=== PATIENT | female | born 1970 | race Caucasian/White ===

== ENCOUNTER 2021-10-06 16:08 | Emergency (ER) | payer OTHER ==
[2021-10-06 17:58] VITALS: BP 128/89; PULSE 65; RESP 18; TEMP 97.1
--- NOTE | 2021-10-06 18:41 | ED ---
General Adult HPI - General Chief complaint: Upper Respiratory Infection Stated complaint: Cough Time Seen by Provider: 10/06/21 18:07 Source: patient Mode of arrival: ambulatory Limitations: no limitations - History of Present Illness Initial comments: This 7-year-old female presents to the emergency department after being exposed COVID-19 stating she would like to get a test. Patient does state she has been experiencing a mild headache, cough, body aches 2 days. Patient states she does take Tylenol seems to help the symptoms. Patient states she is here to get the COVID-19 test. Patient would not like to receive antibodies if she is positive. Patient denies any chest pain, shortness of breath, change in bowel or bladder, change in vision. - Related Data Allergies Allergy/AdvReac Type Severity Reaction Status Date / Time cephalexin [From Keflex] Allergy Rash/Hives Verified 10/06/21 17:58 Review of Systems ROS Statement: Those systems with pertinent positive or pertinent negative responses have been documented in the HPI. ROS Other: All systems not noted in ROS Statement are negative. Past Medical History Past Medical History: Asthma, Fibromyalgia History of Any Multi-Drug Resistant Organisms: None Reported Past Surgical History: Cholecystectomy, Tubal Ligation Past Psychological History: No Psychological Hx Reported Smoking Status: Current every day smoker Past Alcohol Use History: None Reported Past Drug Use History: Marijuana General Exam Limitations: no limitations General appearance: alert, in no apparent distress Head exam: Present: atraumatic, normocephalic, normal inspection Eye exam: Present: normal appearance, EOMI ENT exam: Present: normal exam, mucous membranes moist Respiratory exam: Present: normal lung sounds bilaterally. Absent: respiratory distress, wheezes, rales, rhonchi, stridor Cardiovascular Exam: Present: regular rate, normal rhythm, normal heart sounds. Absent: systolic murmur, diastolic murmur, rubs, gallop, clicks GI/Abdominal exam: Present: soft, normal bowel sounds. Absent: distended, tenderness, guarding, rebound, rigid Extremities exam: Present: normal inspection, full ROM. Absent: tenderness Neurological exam: Present: alert, oriented X3, CN II-XII intact Psychiatric exam: Present: normal affect, normal mood Skin exam: Present: warm, dry, intact, normal color. Absent: rash Course Vital Signs 10/06/21 17:54 Temperature 97.1 F L Pulse Rate 65 Respiratory 18 Rate Blood Pressure 128/89 O2 Sat by Pulse 100 Oximetry Medical Decision Making - Medical Decision Making This 51-year-old female presents to the emergency department to get tested for COVID-19. Patient's COVID-19 test was positive. Patient informed to take vitamin C, vitamin D, zinc [id number]. Patient informed to get pulse oximeter from [facility] and to return if oxygens are below 90%. Patient was sent home in stable condition and agreed to plan. Patient advised to follow up with primary care provider next 1-2 days. - Lab Data Lab Results 10/06/21 Range/Units 18:05 Coronavirus (PCR) Detected A (Not Detectd) Disposition Clinical Impression: COVID-19 Disposition: HOME SELF-CARE Condition: Stable Instructions (If sedation given, give patient instructions): Coronavirus Disease 2019 (COVID-19) Additional Instructions: Please return to the emergency department if new or worsening symptoms occur. Can take [id number] zinc, vitamin D, vitamin C. Advised to get pulse oximeter from [facility] and to return to emergency department if oxygen is ever under 90% Is patient prescribed a controlled substance at d/c from ED?: No Referrals: None,Stated [Primary Care Provider] - 1-2 days Time of Disposition: 18:44
== END 2021-10-06 19:55 | disposition home or self-care (01) ==
LOC: EC 16:08
DX: U07.1 COVID-19 (principal); J45.909 Unspecified asthma, uncomplicated; M79.7 Fibromyalgia; F17.200 Nicotine dependence, unspecified, uncomplicated; F12.90 Cannabis use, unspecified, uncomplicated; Z88.1 Allergy status to other antibiotic agents; Z90.49 Acquired absence of other specified parts of digestive tract; Z98.51 Tubal ligation status
CPT/HCPCS: 87635; 99284

== ENCOUNTER 2023-09-23 14:50 | Emergency (ER) | payer OTHER ==
--- NOTE | 2023-09-23 16:57 | ED ---
General Adult HPI - General Chief complaint: Upper Respiratory Infection Stated complaint: CRESENCIO, left eye pain Time Seen by Provider: 09/23/23 16:52 Source: patient, RN notes reviewed Limitations: no limitations - History of Present Illness Initial comments: 53 year old female presents to the emergency department for evaluation of wheezing x1 month and left upper eyelid swelling x1 day. She reports a history of asthma and states that she ran out of her albuterol 1 month ago and has been unable to get it because of her insurance. She denies any significant shortness of breath or chest pain at this time. She states that she noticed some redness and irritation to her upper eyelid starting yesterday. Denies vision changes, fever, pain with eye movements. - Related Data Home Medications Medication Instructions Recorded Confirmed Albuterol Sulfate [Ventolin HFA] 1 - 2 puff INHALATION RT-Q6H PRN 09/23/23 09/23/23 Hydrochlorothiazide (Unknown 1 dose PO DIRECTED 09/23/23 09/23/23 Strength) Previous Rx's Medication Instructions Recorded Albuterol Inhaler [Ventolin Hfa 1 - 2 puff INHALATION Q6H PRN #1 09/23/23 Inhaler] each Albuterol Nebulized [Ventolin 2.5 mg INHALATION Q4H PRN #75 ml 09/23/23 Nebulized] Allergies Allergy/AdvReac Type Severity Reaction Status Date / Time cephalexin [From Keflex] Allergy Rash/Hives Verified 05/22/22 15:11 Review of Systems ROS Statement: Those systems with pertinent positive or pertinent negative responses have been documented in the HPI. ROS Other: All systems not noted in ROS Statement are negative. Past Medical History Past Medical History: Asthma, Fibromyalgia, Rheumatoid Arthritis (RA) Additional Past Medical History / Comment(s): chronic headaches, restless leg s yndrome History of Any Multi-Drug Resistant Organisms: None Reported Past Surgical History: Cholecystectomy, Tubal Ligation Past Psychological History: No Psychological Hx Reported Smoking Status: Current every day smoker Past Alcohol Use History: None Reported Past Drug Use History: Marijuana General Exam - General Exam Comments Initial Comments: Visual Physical Exam Vital signs reviewed General: Well-appearing, nontoxic, no acute distress. Head: Normocephalic, atraumatic Eyes: PERRLA, EOMI ENT: Airway patent Chest: Nonlabored breathing Skin: No visual rash, normal skin tone Neuro: Alert and oriented 3 Musculoskeletal: No gross abnormalities Limitations: no limitations General appearance: alert, in no apparent distress Head exam: Present: atraumatic, normocephalic, normal inspection Eye exam: Present: normal appearance, PERRL, EOMI. Absent: scleral icterus, conjunctival injection, periorbital swelling ENT exam: Present: normal exam, mucous membranes moist Neck exam: Present: normal inspection. Absent: tenderness, meningismus, lymphadenopathy Respiratory exam: Present: normal lung sounds bilaterally. Absent: respiratory distress, wheezes, rales, rhonchi, stridor Cardiovascular Exam: Present: regular rate, normal rhythm, normal heart sounds. Absent: systolic murmur, diastolic murmur, rubs, gallop, clicks Course Vital Signs 09/23/23 09/23/23 09/23/23 16:06 17:40 18:41 Temperature 98.7 F 98.4 F Pulse Rate 54 L 62 Respiratory 16 18 18 Rate Blood Pressure 115/68 118/72 O2 Sat by Pulse 96 96 Oximetry Medical Decision Making - Medical Decision Making quick note preformed by Italia Sage PA-C Was pt. sent in by a medical professional or institution (MAY Moreno, DRAFTING CLERK, urgent care, hospital, or long term...) When possible be specific @ -No Did you speak to anyone other than the patient for history (EMS, parent, family, police, friend...)? What history was obtained from this source @ -No Did you review nursing and triage notes (agree or disagree)? Why? @ -I reviewed and agree with nursing and triage notes Were old charts reviewed (outside hosp., previous admission, EMS record, old EKG, old radiological studies, urgent care reports/EKG's, long term records)? Report findings @ -No old charts were reviewed Differential Diagnosis (chest pain, altered mental status, abdominal pain women, abdominal pain men, vaginal bleeding, weakness, fever, dyspnea, syncope, headache, dizziness, GI bleed, back pain, seizure, CVA, palpatations, mental health, musculoskeletal)? @ -Differential Dyspnea: Coronary syndrome, arrhythmia, tamponade, asthma, COPD, pulmonary embolism, pneumonia, pneumothorax, pulmonary effusion, anaphylaxis, diabetic ketoacidosis, flailed chest, pulmonary contusion, diaphragmatic rupture, anemia, neuromuscular, this is not meant to be an all-inclusive list. EKG interpreted by me (3pts min.). @ -none X-rays interpreted by me (1pt min.). @ -chest XR shows no acute process CT interpreted by me (1pt min.). @ -None done U/S interpreted by me (1pt. min.). @ -None done What testing was considered but not performed or refused? (CT, X-rays, U/S, labs)? Why? @ -None What meds were considered but not given or refused? Why? @ -None Did you discuss the management of the patient with other professionals (professionals i.e. , PA, DRAFTING CLERK, lab, RT, psych nurse, social media strategist, cash applications specialist, teacher, child support officer, pillowcase sewer)? Give summary @ -No Was smoking cessation discussed for >3mins.? @ -No Was critical care preformed (if so, how long)? @ -No Were there social determinants of health that impacted care today? How? (Homelessness, low income, unemployed, alcoholism, drug addiction, transportation, low edu. Level, literacy, decrease access to med. care, alf, rehab)? @ -No Was there de-escalation of care discussed even if they declined (Discuss DNR or withdrawal of care, Hospice)? DNR status @ -No What co-morbidities impacted this encounter? (DM, HTN, Smoking, COPD, CAD, Cancer, CVA, ARF, Chemo, Hep., AIDS, mental health diagnosis, sleep apnea, morbid obesity)? @ -None Was patient admitted / discharged? Hospital course, mention meds given and route, prescriptions, significant lab abnormalities, going to OR and other pertinent info. @ -Discharged. Patient presented to the emergency department for medication refill and mild redness to her left upper eyelid. On examination, patient lungs clear to auscultation bilaterally cardiac regular rate and rhythm. Patient does have some mild redness to her upper left eyelid without swelling consistent with blepharitis and a small stye. Patient given erythromycin ointment and advised to utilize warm compress. Prescription sent to patient's pharmacy for albuterol inhaler and nebulizer as the patient states that she just ran out and has been having trouble with her asthma symptoms. She is not having any symptoms at this time. Patient discharged home in stable condition. Case discussed with Dr. Junior. Undiagnosed new problem with uncertain prognosis? @ -No Drug Therapy requiring intensive monitoring for toxicity (Heparin, Nitro, Insulin, Cardizem)? @ -No Were any procedures done? @ -No Diagnosis/symptom? @ -Blepharitis, stye Acute, or Chronic, or Acute on Chronic? @ -Acute Uncomplicated (without systemic symptoms) or Complicated (systemic symptoms)? @ -uncomplicated Side effects of treatment? @ -No Exacerbation, Progression, or Severe Exacerbation? @ -No Poses a threat to life or bodily function? How? (Chest pain, [place], [place], pneumonia, PE, COPD, DKA, ARF, appy, cholecystitis, CVA, Diverticulitis, Homicidal, Suicidal, threat to staff... and all critical care pts) @ -No Disposition Clinical Impression: Blepharitis, Hordeolum externum (stye) Disposition: HOME SELF-CARE Condition: Stable Instructions (If sedation given, give patient instructions): Blepharitis (ED) Additional Instructions: Please follow up with your primary care provider. Return to the emergency department for new or worsening symptoms. Prescriptions: Albuterol Inhaler [Ventolin Hfa Inhaler] 1 - 2 puff INHALATION Q6H PRN #1 each PRN Reason: Shortness Of Breath Albuterol Nebulized [Ventolin Nebulized] 2.5 mg INHALATION Q4H PRN #75 ml PRN Reason: difficulty in breathing Is patient prescribed a controlled substance at d/c from ED?: No Referrals: None,Stated [Primary Care Provider] - 1-2 days
[2023-09-23] MEDS ORDERED: ERYTHROMYCIN 5 MG/GM OPHTH OINT 3.5 GM TUBE LEFT EYE STA (17:46)
[2023-09-23] MEDS ORDERED: PROPARACAINE 0.5% OPHTH DROPS 15 ML BTL LEFT EYE STA (17:46)
[2023-09-23] MEDS ORDERED: FLUORESCEIN STRIPS 1 MG STRIP LEFT EYE ONE (17:46)
[2023-09-23 17:50] VITALS: RESP 18
--- NOTE | 2023-09-23 17:53 | XR ---
EXAMINATION TYPE: XR chest 2V DATE OF EXAM: 09/23/2023 5:28 PM CLINICAL INDICATION:Female, 53 years old with history of cough, pain; [facility] COMPARISON: Chest radiographs from 05/22/2022 TECHNIQUE: XR chest 2V Frontal and lateral views of the chest. FINDINGS: Lungs/Pleura: There is no evidence of pleural effusion, focal consolidation, or pneumothorax. Pulmonary vascularity: Unremarkable. Heart/mediastinum: Cardiomediastinal silhouette is unremarkable. Musculoskeletal: No acute osseous pathology. IMPRESSION: No acute cardiopulmonary disease/process.
[2023-09-23 18:56] VITALS: BP 118/72; PULSE 62; TEMP 98.4
== END 2023-09-23 19:11 | disposition home or self-care (01) ==
LOC: EC 14:50
DX: H01.004 Unspecified blepharitis left upper eyelid (principal); H00.014 Hordeolum externum left upper eyelid; J45.909 Unspecified asthma, uncomplicated; F17.200 Nicotine dependence, unspecified, uncomplicated; F12.90 Cannabis use, unspecified, uncomplicated; Z79.899 Other long term (current) drug therapy; Z88.1 Allergy status to other antibiotic agents; Z90.49 Acquired absence of other specified parts of digestive tract
CPT/HCPCS: 71046; 99284

== ENCOUNTER → 2025-02-09 | Outpatient (CLI) | payer OTHER ==
--- NOTE | 2025-02-10 07:17 | MR ---
EXAMINATION TYPE: MR brain wo/w con DATE OF EXAM: 02/09/2025 3:39 PM COMPARISON: 11/14/2012 CLINICAL INDICATION: Female, 55 years old with history of G43.909 MIGRAINE, Migraines, Weakness both sides, Numbness RT side, Forgetfulness IV Contrast: 7 cc Gadobutrol (None if empty) TECHNIQUE: Multiplanar, multisequence images of the brain and brainstem is performed without and with IV contras t, utilizing 7 mL intravenous Gadobutrol . MRI brain without contrast. CLINICAL INDICATION: Female, 55 years old with history of G43.909 MIGRAINE, Persistent headaches. COMPARISON: None. TECHNIQUE: Multiecho multiplanar images the brain were obtained without contrast. FINDINGS: On the T1-weighted sagittal images, the midline structures including the craniovertebral junction rel ationships are normal. The ventricles, basal cisterns and sulci over the convexities are within normal limits and there is n o mass effect or shift of the midline structures. There are a few scattered foci of abnormal increase d signal intensity in the white matter on the FLAIR and T2-weighted images which are nonspecific find ings and most likely reflect mild chronic ischemic white matter change. Based on the diffusion-weight ed images, there is no diffusion restriction or acute ischemic event. Following contrast administration, there is no pathological enhancement throughout the brain parenchy ma. The posterior fossa including the brainstem, fourth ventricle and cerebellar pontine angles appear no rmal. The intraorbital contents are normal. There are marked chronic inflammatory change in the left maxillary sinus, mild chronic inflammatory c hange in the right maxillary sinus and small amount of fluid within the mastoid air cells bilaterally . IMPRESSION: 1. No mass, mass effect , acute ischemic event or pathological enhancement. 2. A few small scattered nonspecific white matter abnormalities as described above. 3. Chronic sinusitis. [facility], , 02/10/2025 7:15 AM
== END | disposition home or self-care (01) ==
LOC: RADMRIMAIN 14:52
PROVIDERS: ATTEND Psychiatry & Neurology Neurology
DX: G43.909 Migraine, unspecified, not intractable, without status migrainosus (principal); J32.0 Chronic maxillary sinusitis; R90.82 White matter disease, unspecified
CPT/HCPCS: 70553; A9585

== ENCOUNTER 2025-04-24 03:37 | Emergency (ER) | payer OTHER ==
[2025-04-24 03:42] VITALS: BP 111/60; PULSE 53; RESP 18; TEMP 97.7
--- NOTE | 2025-04-24 04:24 | ED ---
General Adult HPI - General Chief complaint: Abdominal Pain Stated complaint: Abd pain Time Seen by Provider: 04/24/25 03:43 Source: patient, EMS, RN notes reviewed, old records reviewed Mode of arrival: EMS Limitations: no limitations - History of Present Illness Initial comments: 51 history of abdominal pain. Patient states that she has had some nausea and vomiting that she initially attributed to the amoxicillin that she is currently on. She is taking this for her dental infection. Patient denies fever. She states she had previous cholecystectomy. Denies change in her bowels. - Related Data Home Medications Medication Instructions Recorded Confirmed Albuterol Sulfate [Ventolin HFA] 1 - 2 puff INHALATION RT-Q6H PRN 09/23/23 09/23/23 Hydrochlorothiazide (Unknown 1 dose PO DIRECTED 09/23/23 09/23/23 Strength) Previous Rx's Medication Instructions Recorded Albuterol Inhaler [Ventolin Hfa 1 - 2 puff INHALATION Q6H PRN #1 09/23/23 Inhaler] each Albuterol Nebulized [Ventolin 2.5 mg INHALATION Q4H PRN #75 ml 09/23/23 Nebulized] Docusate [Colace] 100 mg PO BID #60 capsule 04/24/25 polyethylene glycoL 3350 [Miralax] 17 gm PO DAILY #527 gm 04/24/25 Allergies Allergy/AdvReac Type Severity Reaction Status Date / Time amoxicillin Allergy Rash/Hives Verified 04/24/25 03:44 cephalexin [From Keflex] Allergy Rash/Hives Verified 04/24/25 03:44 fluticasone furoate Allergy Rash/Hives Verified 04/24/25 03:44 [From Trelegy Ellipta] umeclidinium Allergy Rash/Hives Verified 04/24/25 03:44 [From Trelegy Ellipta] vilanterol Allergy Rash/Hives Verified 04/24/25 03:44 [From Trelegy Ellipta] Review of Systems ROS Statement: Those systems with pertinent positive or pertinent negative responses have been documented in the HPI. ROS Other: All systems not noted in ROS Statement are negative. Past Medical History Past Medical History: Asthma, Fibromyalgia, Rheumatoid Arthritis (RA) Additional Past Medical History / Comment(s): chronic headaches, restless leg syndrome History of Any Multi-Drug Resistant Organisms: None Reported Past Surgical History: Cholecystectomy, Tubal Ligation Past Psychological History: No Psychological Hx Reported Smoking Status: Current every day smoker Past Alcohol Use History: None Reported Past Drug Use History: Marijuana General Exam General appearance: alert, in no apparent distress Head exam: Present: atraumatic, normocephalic Eye exam: Present: normal appearance, PERRL ENT exam: Present: normal exam Neck exam: Present: normal inspection. Absent: tenderness, meningismus Respiratory exam: Present: normal lung sounds bilaterally. Absent: respiratory distress, wheezes Cardiovascular Exam: Present: regular rate, normal rhythm GI/Abdominal exam: Present: soft, tenderness. Absent: distended Extremities exam: Present: normal inspection Neurological exam: Present: alert, oriented X3, CN II-XII intact. Absent: motor sensory deficit Psychiatric exam: Present: normal affect, normal mood Skin exam: Present: warm, dry, intact Course Vital Signs 04/24/25 03:38 Temperature 97.7 F Pulse Rate 53 L Respiratory 18 Rate Blood Pressure 111/60 O2 Sat by Pulse 98 Oximetry Medical Decision Making - Medical Decision Making Was pt. sent in by a medical professional or institution (Dr. PA, TRAUMA DOCTOR, urgent care, hospital, or long-term...) When possible be specific @ -No Did you speak to anyone other than the patient for history (EMS, parent, family, police, friend...)? What history was obtained from this source @ -No Did you review nursing and triage notes (agree or disagree)? Why? @ -I reviewed and agree with nursing and triage notes Were old charts reviewed (outside hosp., previous admission, EMS record, old EKG, old radiological studies, urgent care reports/EKG's, long-term records)? Report findings @ -No old charts were reviewed Differential Abdominal Pain Women: Appendicitis, Cholecystitis, diverticulosis, ischemic bowel, pancreatitis, hepatitis, UTI, gastroenteritis, AAA, incarcerated hernia, bowel obstruction, constipation, inflammatory bowel, hepatitis, peptic ulcer disease, splenic infarction, perforated viscus, vulvitis, ovarian torsion, PID, kidney stone, placenta abruption, this is not meant to be an all-inclusive list EKG interpreted by me (3pts min.). @ -As above X-rays interpreted by me (1pt min.). @ -None done CT interpreted by me (1pt min.). @CT moderate to severe constipation without obstruction. There is also an incidental finding of pancreatic hypodense lesion, patient is informed of this and will follow-up with her primary care regarding U/S interpreted by me (1pt. min.). @ -None done What testing was considered but not performed or refused? (CT, X-rays, U/S, labs)? Why? @ -None What meds were considered but not given or refused? Why? @ -None Did you discuss the management of the patient with other professionals (professionals i.e. , PA, TRAUMA DOCTOR, lab, RT, psych nurse, social media analyst, forestry worker, teacher, chief resource officer, case supervisor)? Give summary @ -No Was smoking cessation discussed for >3mins.? @ -No Was critical care preformed (if so, how long)? @ -No Were there social determinants of health that impacted care today? How? (Homelessness, low income, unemployed, alcoholism, drug addiction, transportation, low edu. Level, literacy, decrease access to med. care, half-way, rehab)? @ -No Was there de-escalation of care discussed even if they declined (Discuss DNR or withdrawal of care, Hospice)? DNR status @ -No What co-morbidities impacted this encounter? (DM, HTN, Smoking, COPD, CAD, Cancer, CVA, ARF, Chemo, Hep., AIDS, mental health diagnosis, sleep apnea, morbi d obesity)? @ -None Was patient admitted / discharged? Hospital course, mention meds given and rout e, prescriptions, significant lab abnormalities, going to OR and other pertinent info. @ -55-year-old female with abdominal pain, generalized. Patient has mild leukocytosis, mild anemia, otherwise normal electrolytes, kidney function. CT shows moderate to severe stool burden. I suspect this is the cause of the patient's pain. She is given magnesium citrate in the emergency department and prescribed MiraLAX and Colace. She will follow closely with her primary care regarding CT findings. Undiagnosed new problem with uncertain prognosis? @ -No Drug Therapy requiring intensive monitoring for toxicity (Heparin, Nitro, Insulin, Cardizem)? @ -No Were any procedures done? @ -No Diagnosis/symptom? @Abdominal pain Acute, or Chronic, or Acute on Chronic? @Acute Uncomplicated (without systemic symptoms) or Complicated (systemic symptoms)? @Complicated Side effects of treatment? @ -No Exacerbation, Progression, or Severe Exacerbation? @ -No Poses a threat to life or bodily function? How? (Chest pain, [place], [place], pneumonia, PE, COPD, DKA, ARF, appy, cholecystitis, CVA, Diverticulitis, Homicidal, Suicidal, threat to staff... and all critical care pts) @ -No - Lab Data Result diagrams: 04/24/25 04:04 04/24/25 04:04 Lab Results 04/24/25 04/24/25 04/24/25 Range/Units 04:04 04:04 04:04 WBC 11.79 H (4.50-10.00) 10*3/uL RBC 3.30 L (4.10-5.20) 10*6/uL Hgb 10.8 L (12.0-15.0) g/dL Hct 32.1 L (37.2-46.3) % MCV 97.3 H (80.0-97.0) fL MCH 32.7 H (27.0-32.0) pg MCHC 33.6 (32.0-37.0) g/dL Plt Count 310 (140-440) 10*3/uL MPV 9.8 (9.5-12.2) fL Immature Gran % (Auto) 0.3 % Immature Gran # 0.04 (0.00-0.04) 10*3/uL PT 10.8 (10.0-12.5) sec INR 1.0 (<1.2) APTT 22.7 (22.0-30.0) sec Sodium 136 L (137-145) mmol/L Potassium 3.8 (3.5-5.1) mmol/L Chloride 102 (98-107) mmol/L Carbon Dioxide 28 (22-30) mmol/L Anion Gap 6 mmol/L BUN 15 (7-17) mg/dL Creatinine 0.90 (0.52-1.04) mg/dL Est GFR (CKD-EPI)AfAm 84 (>60 ml/min/1.73 sqM) Est GFR (CKD-EPI)NonAf 73 (>60 ml/min/1.73 sqM) Glucose 86 (74-99) mg/dL Plasma Lactic Acid Lito (0.7-2.0) mmol/L Calcium 9.4 (8.4-10.2) mg/dL Total Bilirubin 0.4 (0.2-1.3) mg/dL AST 21 (14-36) U/L ALT 12 (4-34) U/L Alkaline Phosphatase 98 (38-126) U/L Total Protein 6.6 (6.3-8.2) g/dL Albumin 4.1 (3.5-5.0) g/dL Amylase 52 (30-110) U/L Lipase 58 (23-300) U/L 04/24/25 Range/Units 04:04 WBC (4.50-10.00) 10*3/uL RBC (4.10-5.20) 10*6/uL Hgb (12.0-15.0) g/dL Hct (37.2-46.3) % MCV (80.0-97.0) fL MCH (27.0-32.0) pg MCHC (32.0-37.0) g/dL Plt Count (140-440) 10*3/uL MPV (9.5-12.2) fL Immature Gran % (Auto) % Immature Gran # (0.00-0.04) 10*3/uL PT (10.0-12.5) sec INR (<1.2) APTT (22.0-30.0) sec Sodium (137-145) mmol/L Potassium (3.5-5.1) mmol/L Chloride (98-107) mmol/L Carbon Dioxide (22-30) mmol/L Anion Gap mmol/L BUN (7-17) mg/dL Creatinine (0.52-1.04) mg/dL Est GFR (CKD-EPI)AfAm (>60 ml/min/1.73 sqM) Est GFR (CKD-EPI)NonAf (>60 ml/min/1.73 sqM) Glucose (74-99) mg/dL Plasma Lactic Acid Lito 0.6 L (0.7-2.0) mmol/L Calcium (8.4-10.2) mg/dL Total Bilirubin (0.2-1.3) mg/dL AST (14-36) U/L ALT (4-34) U/L Alkaline Phosphatase (38-126) U/L Total Protein (6.3-8.2) g/dL Albumin (3.5-5.0) g/dL Amylase (30-110) U/L Lipase (23-300) U/L Disposition Clinical Impression: Abdominal pain Disposition: HOME SELF-CARE Condition: Fair Instructions (If sedation given, give patient instructions): Abdominal Pain (ED) Additional Instructions: Please follow-up with your primary care provider closely regarding CT findings within the pancreas. Prescriptions: Docusate [Colace] 100 mg PO BID #60 capsule polyethylene glycoL 3350 [Miralax] 17 gm PO DAILY #527 gm Is patient prescribed a controlled substance at d/c from ED?: No Referrals: Antelmo Siu DO [Primary Care Provider] - 1-2 days Time of Disposition: 06:58
[2025-04-24 04:34] LABS: Basophils # (A) 0.10 10*3/uL (0.00-0.10); Basophils % (A) 0.8 %; Eosinophils # (A) 2.17 10*3/uL (0.04-0.35); Eosinophils % (A) 18.4 %; HCT 32.1 % (37.2-46.3); HGB 10.8 g/dL (12.0-15.0); Lymphocytes # (A) 2.66 10*3/uL (0.90-5.00); Lymphocytes % (A) 22.6 %; MCH 32.7 pg (27.0-32.0); MCHC 33.6 g/dL (32.0-37.0); MCV 97.3 fL (80.0-97.0); Monocytes # (A) 0.60 10*3/uL (0.20-1.00); Monocytes % (A) 5.1 %; Neutrophils # (A) 6.22 10*3/uL (1.80-7.70); Neutrophils % (A) 52.8 %; Platelet Count 310 10*3/uL (140-440); RBC 3.30 10*6/uL (4.10-5.20); RDW 12.2 % (11.5-14.5); WBC 11.79 10*3/uL (4.50-10.00)
[2025-04-24 04:37] LABS: ALT 12 U/L (4-34); AST 21 U/L (14-36); African American GFR (CKD) 84 (>60 ml/min/1.73 sqM); Albumin 4.1 g/dL (3.5-5.0); Alkaline Phosphatase 98 U/L (38-126); Amylase 52 U/L (30-110); Anion Gap 6 mmol/L; Blood Urea Nitrogen 15 mg/dL (7-17); Calcium 9.4 mg/dL (8.4-10.2); Carbon Dioxide 28 mmol/L (22-30); Chloride 102 mmol/L (98-107); Glucose 86 mg/dL (74-99); Lipase 58 U/L (23-300); Non-African American GFR(CKD) 73 (>60 ml/min/1.73 sqM); Potassium 3.8 mmol/L (3.5-5.1); Sodium 136 mmol/L (137-145); Total Protein 6.6 g/dL (6.3-8.2)
[2025-04-24] MEDS: HYDROmorphone 0.5 MG/0.5 ML SYRINGE IVP STA (04:50)
[2025-04-24] MEDS: ONDANSETRON 4 MG/2 ML VIAL IVP STA (04:50)
[2025-04-24 05:14] LABS: INR 1.0 (<1.2); Partial Thromboplastin Time 22.7 sec (22.0-30.0); Prothrombin Time 10.8 sec (10.0-12.5)
--- NOTE | 2025-04-24 05:37 | CT ---
EXAM: CT Abdomen and Pelvis With Intravenous Contrast CLINICAL HISTORY: ITS.REASON CT Reason: abdominal pain TECHNIQUE: Axial computed tomography images of the abdomen and pelvis with intravenous contrast. CTDI is 16.4 mGy and DLP is 766.9 mGy-cm. This CT exam was performed using one or more of the following dose reduction techniques: automated exposure control, adjustment of the mA and/or kV according to patient size, and/or use of iterative reconstruction technique. COMPARISON: No relevant prior studies available. FINDINGS: Lung bases: Unremarkable. No mass. No consolidation. ABDOMEN: Liver: Hepatomegaly and hepatic steatosis. No evidence of hepatic mass. Gallbladder and bile ducts: The gallbladder is surgically absent. No ductal dilation. Pancreas: Question of a hypodense lesion seen within the head of the pancreas seen on series 201 image 25. No ductal dilation. Spleen: Unremarkable. No splenomegaly. Adrenals: Unremarkable. No mass. Kidneys and ureters: Unremarkable. No solid mass. No hydronephrosis. Stomach and bowel: Colonic diverticulosis without evidence of acute diverticulitis. Moderate to severe colonic stool burden. No evidence of colonic obstruction. PELVIS: Appendix: No findings to suggest acute appendicitis. Bladder: Unremarkable. No mass. Reproductive: Unremarkable as visualized. ABDOMEN and PELVIS: Intraperitoneal space: Unremarkable. No free air. No significant fluid collection. Bones/joints: Degenerative changes are seen within the spine and hips. No acute fracture. No dislocation. Soft tissues: Unremarkable. Vasculature: Calcifications are seen within a nondilated aorta. Lymph nodes: Unremarkable. No enlarged lymph nodes. IMPRESSION: 1. Question of a subtle hypodense lesion seen within the head of the pancreas. Recommend nonemergent outpatient pancreatic MRI for further evaluation. 2. Severe colonic stool burden without evidence of obstruction. 3. Otherwise no acute intra-abdominal or pelvic findings.
[2025-04-24] MEDS: MAGNESIUM CITRATE 296 ML BOTTLE PO ONE (06:52)
== END 2025-04-24 07:59 | disposition home or self-care (01) ==
LOC: EC 03:37
DX: R10.9 Unspecified abdominal pain (principal); Z90.49 Acquired absence of other specified parts of digestive tract; F17.200 Nicotine dependence, unspecified, uncomplicated; Z88.0 Allergy status to penicillin; Z88.1 Allergy status to other antibiotic agents; Z88.8 Allergy status to other drugs, medicaments and biological substances
CPT/HCPCS: 36415; 80053; 82150; 83605; 83690; 85025; 85610; 85730; 74177; 99284; 96374; 96375; J2405; J1171; Q9967